=== PATIENT | female | born 1950 | race Caucasian/White ===

== ENCOUNTER → 2018-02-21 | Outpatient (CLI) | payer MEDICARE ==
[~2018-02-21] MED LIST: AMLO5TAB2 PO; ASP81TEC PO; CLN.1T PO; CLONIDINE; CLPD75T PO; DIPH25TA82 PO; FAMO20TA5 PO; HYOS0.3710 PO; INSASP10V; INSU100V6; LISI10TA PO; LSNP20T PO; MED FOR CHOLESTEROL; METO10TA3 PO; METO50TA7 PO; NEFA150T PO; ONDAN4ODT PO; VLS80C PO
--- NOTE | 2018-02-21 20:25 | Diagnostic Imaging Report ---
INDICATION: Screening. EXAMINATION: Digital mammogram bilateral screening with 3-D tomosynthesis. This study was compared to the prior exam of 03/02/2014. At this time, there are no current complaints. The current study was also evaluated with a Computer Aided Detection (CAD) system. FINDINGS: There are scattered fibroglandular densities in both breasts which could obscure a lesion. Overall, there does not appear to have been any significant change when compared to the prior exam. No primary or secondary sign of malignancy is noted. IMPRESSION: 1. There is no radiographic evidence for malignancy. 2. The patient should have her annual bilateral screening mammogram on schedule in February of 2019. ACR BI-RADS Category 1: Negative. Result letter will be mailed to the patient. Note: At least 10% of breast cancer is not imaged by mammography. Dictated by: Dictated on workstation # [id number]
== END ==
LOC: RAD 09:12
PROVIDERS: ATTEND Physician Assistant
DX: Z12.31 Encounter for screening mammogram for malignant neoplasm of breast (principal)
CPT/HCPCS: 77067

== ENCOUNTER → 2018-06-26 | Outpatient (CLI) ==
[2018-06-26 12:36] LABS: ABG BASE EXCESS -17.5 MMOL/L (-2.5-2.5); ABG OXYGEN SATURATION 98 % (94-100); ABG PCO2 29 MMHG (35-45); ABG PO2 118 MMHG (79-93); ABG TCO2 10.5 MMOL/L (21.0-31.0)
[2018-06-26 12:37] LABS: ALLENS TEST POSITIVE; VENTILATOR NO
[2018-06-26 12:38] LABS: ABG PH 7.15 (7.37-7.43)
[2018-06-26 13:05] LABS: PATIENT TEMP 97.5
== END ==
LOC: LABNPT 12:35 → MERGE 12:35
DX: Z53.9 Procedure and treatment not carried out, unspecified reason (principal)
CPT/HCPCS: 82805

== ENCOUNTER → 2023-02-17 | Outpatient (CLI) | payer MEDICARE ==
--- NOTE | 2023-02-17 12:24 | Diagnostic Imaging Report ---
3-D bilateral screening mammogram with CAD. This study was compared to the prior exam of 02/21/2018. At this time there are no current complaints. The current study was also evaluated with a Computer Aided Detection (CAD) system. FINDINGS: The fibroglandular tissue in both breasts is heterogeneously dense. This does limit the sensitivity of this exam. Overall, there does not appear to have been any significant change when compared to the prior study. No primary or secondary sign of malignancy is noted. IMPRESSION: There is no radiographic evidence for malignancy. ACR BI-RADS Category 1: Negative. Result letter will be mailed to the patient. Note: At least 10% of breast cancer is not imaged by mammography. Dictated by: Dictated on workstation # [id number]
== END ==
LOC: RAD 10:01
PROVIDERS: ATTEND Nurse Practitioner
DX: Z12.31 Encounter for screening mammogram for malignant neoplasm of breast (principal)
CPT/HCPCS: 77063; 77067